=== PATIENT | male | born 1955 | race African-American/Black ===

== ENCOUNTER 2019-01-15 16:30 | Inpatient (IN) | payer MEDICAID ==
[~2019-01-15] VITALS: Ht 182.9 cm; Wt 99.8 kg
[~2019-01-15 16:30] MED LIST: ALBUTEROL INH; LISI-604 PO
[2019-01-15] MEDS ORDERED: SODIUM CHLORIDE 0.9% 1,000 ML IV ONE ×3 (17:58→23:56)
[2019-01-15] MEDS ORDERED: ONDANSETRON HCL 4MG/2ML INJ IV STA (17:58)
[2019-01-15 18:10] LABS: CLARITY URINE CLEAR (CLEAR); COLOR URINE YELLOW (YELLOW); KETONES URINE NEGATIVE (NEGATIVE); LEUKOCYTE ESTERASE URINE NEGATIVE (NEGATIVE); NITRITE URINE NEGATIVE (NEGATIVE); OCCULT BLOOD URINE NEGATIVE (NEGATIVE); PROTEIN URINE NEGATIVE (NEGATIVE); SPECIFIC GRAVITY URINE 1.032 (1.005-1.030); UROBILINOGEN URINE 0.2 E.U./dL (0.2-1.0)
[2019-01-15 18:25] LABS: BASOPHILS % 0.5 % (0.0-2.0); EOSINOPHILS % 0.3 % (0.0-5.0); HEMATOCRIT. 50.1 % (42.0-52.0); HEMOGLOBIN. 16.5 g/dL (14.0-18.0); LYMPHOCYTES % 13.1 % (20.0-50.0); MEAN CORPUSCULAR HEMOGLOBIN 32.8 pg (28.0-32.0); MEAN CORPUSCULAR VOLUME 99.6 fL (80.0-94.0); MEAN PLATELET VOLUME 12.1 fl (7.4-10.4); MONOCYTES % 9.3 % (2.0-8.0); NEUTROPHILS % 76.8 % (40.0-76.0); PLATELET 108 x1000/uL (130-400); RED BLOOD CELL COUNT 5.03 mill/uL (4.7-6.1); RED CELL DISTRIBUTION WIDTH 13.3 % (11.6-14.6)
[2019-01-15 21:40] LABS: CHLORIDE 83 mEq/L (98-107)
[2019-01-15] MEDS ORDERED: SODIUM BICARBONATE 8.4% 1 MEQ/ML 50ML SYR IV ONE (22:30)
[2019-01-15] MEDS ORDERED: CALCIUM CHLORIDE 1GM/10ML SYR IV ONE (22:30)
[2019-01-15] MEDS ORDERED: INSULIN REGULAR (HUMULIN R) 300UNITS/3ML IV ONE (22:30)
[2019-01-15] MEDS ORDERED: INSULIN REGULAR (DRIP) 100 UNITS in SODIUM CHLORIDE 0.9% 99 ML IV NR (23:55)
[2019-01-16] MEDS ORDERED: INSULIN REGULAR (DRIP) 100 UNITS in SODIUM CHLORIDE 0.9% 100 ML IV NR (00:30)
[2019-01-16 00:52] LABS: CHLORIDE 99 mEq/L (98-107)
[2019-01-16 04:30] VITALS: BP 137/89
[2019-01-16] MEDS ORDERED: NON FORMULARY PATIENT HOME MED XX SCH (05:00)
[2019-01-16] MEDS ORDERED: IPRATROPIUM/ALBUTEROL 0.5-3(2.5)MG/3ML NEB HHN PRN (05:00)
[2019-01-16] MEDS ORDERED: DEXTROSE 50% WATER 50ML SYRINGE IV PRN (05:00)
[2019-01-16] MEDS ORDERED: HYDROCODONE/ACETAMINOPHEN 5/325MG TABLET PO PRN (05:00)
[2019-01-16] MEDS: SODIUM CHLORIDE 0.9% 1,000 ML IV SCH (05:44)
[2019-01-16 06:14] VITALS: BP 137/89
[2019-01-16] MEDS: BLOOD SUGAR DIAGNOSTIC STRIP TEST SCH ×4 (06:43→20:59)
[2019-01-16 08:00] VITALS: BP 130/82
[2019-01-16] MEDS: LISINOPRIL 20MG TABLET PO SCH (08:14)
[2019-01-16] MEDS: INSULIN LISPRO 100 UNITS/ML SUBCUT SCH ×6 (08:28→21:19)
[2019-01-16] MEDS ORDERED: INSULIN GLARGINE UD 100 UNITS/ML SYR SUBCUT SCH (10:00)
[2019-01-16] MEDS ORDERED: SORBITOL 70% SOLN 30ML PO NR (10:15)
[2019-01-16 10:40] LABS: BASOPHILS % 0.7 % (0.0-2.0); EOSINOPHILS % 0.5 % (0.0-5.0); HEMATOCRIT. 42.3 % (42.0-52.0); HEMOGLOBIN. 14.4 g/dL (14.0-18.0); LYMPHOCYTES % 17.4 % (20.0-50.0); MEAN CORPUSCULAR HEMOGLOBIN 32.5 pg (28.0-32.0); MEAN CORPUSCULAR VOLUME 95.5 fL (80.0-94.0); MONOCYTES % 6.7 % (2.0-8.0); NEUTROPHILS % 74.7 % (40.0-76.0); PLATELET 102 x1000/uL (130-400); RED BLOOD CELL COUNT 4.43 mill/uL (4.7-6.1); RED CELL DISTRIBUTION WIDTH 13.1 % (11.6-14.6)
[2019-01-16 10:52] LABS: CHLORIDE 102 mEq/L (98-107)
[2019-01-16] MEDS: DOCUSATE SODIUM 250MG CAPSULE PO SCH (10:56)
[2019-01-16 10:59] LABS: LDL CHOLESTEROL 109 mg/dL (5-100)
[2019-01-16 11:00] LABS: HDL CHOLESTEROL 43 mg/dL (40-59)
[2019-01-16 12:00] VITALS: BP 130/78
[2019-01-16] MEDS ORDERED: GLIPIZIDE XL 2.5MG TABLET PO NR (13:00)
[2019-01-16 16:00] VITALS: BP 151/87
[2019-01-16 16:34] LABS: *AMPHETAMINES SCREEN URINE NEGATIVE (NEGATIVE); *BARBITURATES SCREEN URINE NEGATIVE (NEGATIVE); *BENZODIAZEPINES SCREEN URINE NEGATIVE (NEGATIVE); *COCAINE SCREEN URINE NEGATIVE (NEGATIVE); CANNABINOID URINE SCREEN NEGATIVE (NEGATIVE); METHADONE URINE SCREEN NEGATIVE (NEGATIVE); OPIATES URINE SCREEN NEGATIVE (NEGATIVE); PHENCYCLIDINE URINE SCREEN NEGATIVE (NEGATIVE)
[2019-01-16] MEDS: METFORMIN HCL 500MG TABLET PO SCH (18:10)
[2019-01-16 20:00] VITALS: BP 175/93
[2019-01-16] MEDS: INSULIN GLARGINE UD 100 UNITS/ML SYR SUBCUT SCH (21:20)
[2019-01-17] VITALS: BP 136/87
[2019-01-17 04:00] VITALS: BP 147/96
[2019-01-17] MEDS: SODIUM CHLORIDE 0.9% 1,000 ML IV SCH (05:50)
[2019-01-17] MEDS: BLOOD SUGAR DIAGNOSTIC STRIP TEST SCH ×2 (06:20→12:20)
[2019-01-17 08:00] VITALS: BP 136/96
[2019-01-17 08:05] LABS: BASOPHILS % 0.4 % (0.0-2.0); EOSINOPHILS % 0.6 % (0.0-5.0); HEMATOCRIT. 43.6 % (42.0-52.0); HEMOGLOBIN. 14.5 g/dL (14.0-18.0); LYMPHOCYTES % 24.3 % (20.0-50.0); MEAN CORPUSCULAR HEMOGLOBIN 32.2 pg (28.0-32.0); MEAN CORPUSCULAR VOLUME 96.6 fL (80.0-94.0); MONOCYTES % 8.3 % (2.0-8.0); NEUTROPHILS % 66.4 % (40.0-76.0); PLATELET 93 x1000/uL (130-400); RED BLOOD CELL COUNT 4.51 mill/uL (4.7-6.1); RED CELL DISTRIBUTION WIDTH 13.3 % (11.6-14.6)
[2019-01-17 08:18] LABS: CHLORIDE 106 mEq/L (98-107)
[2019-01-17] MEDS ORDERED: TRIAMCINOLONE ACETONIDE 0.1 % OINT 15GM TOP SCH ×2 (09:00→10:00)
[2019-01-17] MEDS: DOCUSATE SODIUM 250MG CAPSULE PO SCH (10:29)
[2019-01-17] MEDS: METFORMIN HCL 500MG TABLET PO SCH (10:29)
[2019-01-17] MEDS: LISINOPRIL 20MG TABLET PO SCH (10:31)
[2019-01-17] MEDS: INSULIN GLARGINE UD 100 UNITS/ML SYR SUBCUT SCH (10:41)
[2019-01-17] MEDS: INSULIN LISPRO 100 UNITS/ML SUBCUT SCH ×4 (10:41→12:50)
[2019-01-17 13:04] VITALS: BP 130/96
[2019-01-18 09:09] LABS: % CD 3 POS. LYMPHOCYTES 77.5 % (57.5-86.2); % CD 4 POS. LYMPHOCYTES 46.5 % (30.8-58.5); % CD 8 POS. LYMPH 33.6 % (12.0-35.5); ABSOLUTE CD 3 1473 /uL (622-2402); ABSOLUTE CD 4 HELPER 884 /uL (359-1519); ABSOLUTE CD 8 SUPPRESSOR 638 /uL (109-897); ABSOLUTE EOSINOPHILS 0.1 x10E3/uL (0.0-0.4); ABSOLUTE LYMPHOCYTES 1.9 x10E3/uL (0.7-3.1); ABSOLUTE MONOCYTES 0.5 x10E3/uL (0.1-0.9); ABSOLUTE NEUTROPHILS 6.5 x10E3/uL (1.4-7.0); BASOPHILS 0 % (Not Estab.); CD4/CD8 RATIO 1.38 (0.92-3.72); HEMATOCRIT 45.2 % (37.5-51.0); HEMOGLOBIN 14.3 g/dL (13.0-17.7); IMMATURE GRANULOCYTES 0 % (Not Estab.); LYMPHOCYTES 21 % (Not Estab.); MEAN CORPUSCULAR HEMOGLOBIN 31.4 pg (26.6-33.0); MEAN CORPUSCULAR HGB CONC. 31.6 g/dL (31.5-35.7); MEAN CORPUSCULAR VOLUME 99 fL (79-97); MONOCYTES 6 % (Not Estab.); NEUTROPHILS 72 % (Not Estab.); PLATELETS 127 x10E3/uL (150-450); RBC 4.55 x10E6/uL (4.14-5.80); RED CELL DISTRIBUTION WIDTH 13.5 % (12.3-15.4)
[2019-01-21 13:10] LABS: HIV 1 ABS Positive (Negative); HIV 2 ABS Negative (Negative); HIV SCREEN 4G Reactive (Non Reactive); INTERPRETATION HIV-1 Positive (.)
== END 2019-01-17 15:08 | disposition home or self-care (01) | DRG 420 ==
LOC: ER 16:30 → 6WST 23:42 → EDBEDREQTM 01-16 01:22 → EDBEDREQDT 01-16 01:22 → EDBEDREQSVC 01-16 01:22 → ENRESERV 01-16 03:28
PROVIDERS: ADMIT Internal Medicine; ATTEND Internal Medicine
DX: E11.65 Type 2 diabetes mellitus with hyperglycemia (principal); N17.0 Acute kidney failure with tubular necrosis; K59.00 Constipation, unspecified; E87.8 Other disorders of electrolyte and fluid balance, not elsewhere classified; E87.1 Hypo-osmolality and hyponatremia; E87.5 Hyperkalemia; I10 Essential (primary) hypertension; E87.6 Hypokalemia
CPT/HCPCS: 36415; 74021; 80048; 80061; 80305; 81003; 82962; 83036; 86359; 86360; 86701; 86702; 87389; 93005; 93970; 99291; C1893; J1815; J2405; J3490; J7030; J7050

== ENCOUNTER 2019-01-19 13:30 | Emergency (ER) | payer MEDICAID ==
[~2019-01-19] VITALS: Ht 182.9 cm; Wt 97.5 kg
[2019-01-19 15:03] VITALS: BP 142/99
== END 2019-01-19 15:16 | disposition home or self-care (01) ==
LOC: ER 13:39
DX: E11.65 Type 2 diabetes mellitus with hyperglycemia (principal); I10 Essential (primary) hypertension; Z98.890 Other specified postprocedural states
CPT/HCPCS: 82962; 99281; 99282

== ENCOUNTER 2019-05-24 15:22 | Emergency (ER) | payer MEDICAID ==
[~2019-05-24] VITALS: Ht 180.3 cm; Wt 95.5 kg
[2019-05-24] MEDS ORDERED: [UNRECOGNIZED DRUG - OTHER] (15:38)
[2019-05-24] MEDS ORDERED: KETOROLAC 60MG/2ML VIAL IM ONE (16:45)
[2019-05-24 17:32] VITALS: BP 132/78
== END 2019-05-24 17:42 | disposition home or self-care (01) ==
LOC: ER 15:22
DX: M79.671 Pain in right foot (principal); Z91.81 History of falling
CPT/HCPCS: 73630; 96372; 99283; J1885

== ENCOUNTER 2019-06-25 17:02 | Emergency (ER) | payer MEDICAID ==
[~2019-06-25] VITALS: Ht 182.9 cm; Wt 90.0 kg
[~2019-06-25 17:02] MED LIST changes: +[UNRECOGNIZED DRUG - OTHER]
[2019-06-25 17:06] VITALS: BP 126/83
[2019-06-25] MEDS ORDERED: PREDNISONE 20MG TABLET PO ONE (17:30)
== END 2019-06-25 17:36 | disposition home or self-care (01) ==
LOC: ER 17:02
DX: G51.0 Bell's palsy (principal); I10 Essential (primary) hypertension
CPT/HCPCS: 99283; J7512

== ENCOUNTER 2019-09-09 09:39 | Emergency (ER) | payer MEDICAID ==
[~2019-09-09] VITALS: Ht 182.9 cm; Wt 98.0 kg
[2019-09-09] MEDS ORDERED: KETOROLAC 60MG/2ML VIAL IM ONE (10:15)
[2019-09-09 12:44] VITALS: BP 175/100
== END 2019-09-09 12:46 | disposition home or self-care (01) ==
LOC: ER 09:39
DX: M54.40 Lumbago with sciatica, unspecified side (principal); G89.29 Other chronic pain; M25.551 Pain in right hip; E11.9 Type 2 diabetes mellitus without complications; I10 Essential (primary) hypertension; Z79.899 Other long term (current) drug therapy
CPT/HCPCS: 73502; 93971; 96372; 99284; J1885

== ENCOUNTER 2021-01-25 16:38 | Emergency (ER) | payer MEDICAID ==
[~2021-01-25] VITALS: Ht 180.3 cm; Wt 92.0 kg
[~2021-01-25 16:38] MED LIST changes: -LISI-604 PO; +LISI20TA31 PO
[2021-01-25 16:59] VITALS: BP 161/100
[2021-01-25] MEDS ORDERED: TOPUD MT (17:12)
== END 2021-01-25 17:24 | disposition home or self-care (01) ==
LOC: ER 16:38
DX: L84 Corns and callosities (principal); I10 Essential (primary) hypertension; E11.9 Type 2 diabetes mellitus without complications; Z98.890 Other specified postprocedural states
CPT/HCPCS: 82962; 99281

== ENCOUNTER 2022-07-05 06:09 | Emergency (ER) | payer MEDICARE, MEDICAID ==
[~2022-07-05] VITALS: Ht 180.3 cm; Wt 96.0 kg
[~2022-07-05 06:09] MED LIST changes: +TOPUD MT
[2022-07-05] MEDS ORDERED: IBUPROFEN 400MG TABLET PO ONE (06:30)
[2022-07-05] MEDS ORDERED: TOPUD PO (07:42)
[2022-07-05 08:24] VITALS: BP 133/87
== END 2022-07-05 08:31 | disposition home or self-care (01) ==
LOC: ER 06:09
DX: S62.306A Unspecified fracture of fifth metacarpal bone, right hand, initial encounter for closed fracture (principal); I10 Essential (primary) hypertension; E11.9 Type 2 diabetes mellitus without complications; W22.09XA Striking against other stationary object, initial encounter; Y93.89 Activity, other specified; Y92.89 Other specified places as the place of occurrence of the external cause; Y99.8 Other external cause status
CPT/HCPCS: 29125; 73130; 99283

== ENCOUNTER 2022-10-17 08:13 | Emergency (ER) | payer MEDICARE, MEDICAID ==
[~2022-10-17] VITALS: Ht 177.8 cm; Wt 90.0 kg
[~2022-10-17 08:13] MED LIST changes: +TOPUD PO
[2022-10-17 08:58] LABS: HEMATOCRIT. 40.9 % (42.0-52.0); HEMOGLOBIN. 13.4 g/dL (14.0-18.0); MEAN CORPUSCULAR HEMOGLOBIN 31.6 pg (28.0-32.0); MEAN CORPUSCULAR HGB CONC 32.8 g/dL (31.0-37.0); MEAN CORPUSCULAR VOLUME 96.5 fL (80.0-94.0); MEAN PLATELET VOLUME 10.4 fl (7.4-10.4); PLATELET 119 x1000/uL (130-400); RED BLOOD CELL COUNT 4.24 mill/uL (4.7-6.1); RED CELL DISTRIBUTION WIDTH 14.4 % (11.6-14.6); WHITE BLOOD COUNT 4.4 x1000/uL (4.5-11.0)
[2022-10-17 09:06] LABS: CHLORIDE 114 mEq/L (98-107); INDEX HEMOLYSI 1 (1-3); INDEX ICTERIC 1 (1-4); INDEX LIPEMIC 1 (1-3); POTASSIUM 3.8 mEq/L (3.5-5.1); SODIUM 139 mEq/L (136-145)
[2022-10-17 09:16] LABS: ALANINE AMINOTRANSFERASE 22 IU/L (13-61); ALBUMIN 3.2 g/dL (3.4-5.0); ASPARTATE AMINOTRANSFERASE 16 IU/L (15-37); BILIRUBIN TOTAL 0.3 mg/dL (0.1-1.0); CALCIUM 7.7 mg/dL (8.5-10.1); CARBON DIOXIDE 24 mEq/L (21-32); DIFFERENTIAL COMMENT 1; GLUCOSE 90 mg/dL (70-105); NT PRO B-TYPE NATRIURETIC PEP 121 pg/mL (5-125); PROTEIN TOTAL 6.6 g/dL (6.0-8.3); UREA NITROGEN BLOOD 21 mg/dL (7-21)
[2022-10-17] MEDS ORDERED: PREDNISONE 20MG TABLET PO STA (09:36)
[2022-10-17] MEDS ORDERED: ALBUTEROL (0.083%) 2.5MG/3ML NEB HHN STA (09:36)
[2022-10-17 10:00] VITALS: PULSE 70; RESP 20; O2SAT 94
[2022-10-17] MEDS ORDERED: ALBU6.7H3 INH (10:07)
[2022-10-17] MEDS ORDERED: P50 MT (10:07)
[2022-10-17] MEDS ORDERED: BLOO-1812 MC (10:07)
[2022-10-17 10:14] LABS: PLATELET ESTIMATE DECREASED
[2022-10-17 10:31] VITALS: BP 175/84; PULSE 80; RESP 19; TEMP 98.2
[2022-10-17 10:48] LABS: CLARITY URINE CLEAR (CLEAR); COLOR URINE YELLOW (YELLOW); GLUCOSE URINE NEGATIVE (NEGATIVE); KETONES URINE NEGATIVE (NEGATIVE); LEUKOCYTE ESTERASE URINE NEGATIVE (NEGATIVE); NITRITE URINE NEGATIVE (NEGATIVE); OCCULT BLOOD URINE NEGATIVE (NEGATIVE); PH URINE 5.5 (4.5-8.0); PROTEIN URINE NEGATIVE (NEGATIVE); SPECIFIC GRAVITY URINE 1.025 (1.005-1.030)
[2022-10-18] MEDS ORDERED: FLAS1EAC2 TP ×3 (00:35→00:58)
[2022-10-18] MEDS ORDERED: FLAS1KIT2 MC ×3 (00:35→00:58)
== END 2022-10-17 10:41 | disposition home or self-care (01) ==
LOC: ER 08:13
DX: J44.9 Chronic obstructive pulmonary disease, unspecified (principal); E11.9 Type 2 diabetes mellitus without complications; Z98.890 Other specified postprocedural states
CPT/HCPCS: 99285; 71045; 80053; 81003; 83880; 85025; 36415; 94640; 93005; J7512

== ENCOUNTER 2022-10-17 23:30 | Emergency (ER) | payer MEDICARE, MEDICAID ==
[~2022-10-17] VITALS: Ht 177.8 cm; Wt 101.0 kg
[~2022-10-17 23:30] MED LIST changes: +ALBU6.7H3 INH; +BLOO-1812 MC; +P50 MT
[2022-10-17 23:41] VITALS: BP 202/108; PULSE 85; RESP 18; TEMP 98.4; O2SAT 99
[2022-10-18] MEDS ORDERED: FLAS1KIT2 MC ×3 (00:35→00:58)
[2022-10-18] MEDS ORDERED: FLAS1EAC2 TP ×3 (00:35→00:58)
== END 2022-10-18 00:59 | disposition home or self-care (01) ==
LOC: ER 23:30
DX: Z76.0 Encounter for issue of repeat prescription (principal)
CPT/HCPCS: 99281

== ENCOUNTER 2024-01-06 08:23 | Inpatient (IN) | payer MEDICAID ==
[~2024-01-06] VITALS: Ht 182.9 cm; Wt 93.0 kg
[~2024-01-06 08:23] MED LIST changes: +FLAS1EAC2 TP; +FLAS1KIT2 MC
[2024-01-06] MEDS: IPRATROPIUM BROMIDE (0.02%) 0.5MG/2.5ML NEB HHN STA (09:11)
[2024-01-06 09:12] VITALS: PULSE 82; RESP 16; O2SAT 98
[2024-01-06] MEDS: ALBUTEROL (0.083%) 2.5MG/3ML NEB HHN STA (09:12)
[2024-01-06 09:37] LABS: EOSINOPHILS % 7.4 % (0.0-5.0); HEMATOCRIT. 44.1 % (42.0-52.0); HEMOGLOBIN. 14.1 g/dL (14.0-18.0); LYMPHOCYTES % 26.5 % (20.0-50.0); MEAN CORPUSCULAR HEMOGLOBIN 32.1 pg (28.0-32.0); MEAN CORPUSCULAR HGB CONC 32.1 g/dL (31.0-37.0); MEAN PLATELET VOLUME 10.5 fl (7.4-10.4); MONOCYTES % 8.5 % (2.0-8.0); NEUTROPHILS % 56.6 % (40.0-76.0); PLATELET 127 x1000/uL (130-400); RED BLOOD CELL COUNT 4.41 mill/uL (4.7-6.1); RED CELL DISTRIBUTION WIDTH 14.9 % (11.6-14.6); WHITE BLOOD COUNT 4.1 x1000/uL (4.5-11.0)
[2024-01-06] MEDS: METHYLPREDNISOLONE SOD SUCC 125MG/2ML (ACT-O-VIAL) IV STA (09:38)
[2024-01-06] MEDS: MAGNESIUM 2 G PREMIX 50 ML IV STA (09:38)
[2024-01-06 09:54] LABS: CARBON DIOXIDE 29 mEq/L (21-32); CHLORIDE 109 mEq/L (98-107); POTASSIUM 3.9 mEq/L (3.5-5.1); SODIUM 142 mEq/L (136-145)
[2024-01-06 09:55] LABS: CALCIUM 8.9 mg/dL (8.7-10.4)
[2024-01-06 10:00] LABS: CREATININE 1.1 mg/dL (0.6-1.3); GLUCOSE 140 mg/dL (70-105); TROPONIN I HIGH SENSITIVITY 13 ng/L (3.0-53); UREA NITROGEN BLOOD 16 mg/dL (9-23)
[2024-01-06 10:02] LABS: ALANINE AMINOTRANSFERASE 17 IU/L (10-49); ASPARTATE AMINOTRANSFERASE 20 IU/L (<34); BILIRUBIN DIRECT 0.2 mg/dL (<=3.0); BILIRUBIN TOTAL 0.6 mg/dL (0.1-1.0); PROTEIN TOTAL 6.8 g/dL (6.0-8.3)
[2024-01-06 10:13] LABS: CLARITY URINE CLEAR (CLEAR); COLOR URINE YELLOW (YELLOW); GLUCOSE URINE NEGATIVE (NEGATIVE); KETONES URINE NEGATIVE (NEGATIVE); LEUKOCYTE ESTERASE URINE NEGATIVE (NEGATIVE); NITRITE URINE NEGATIVE (NEGATIVE); OCCULT BLOOD URINE NEGATIVE (NEGATIVE); PH URINE 5.5 (4.5-8.0); PROTEIN URINE NEGATIVE (NEGATIVE); SPECIFIC GRAVITY URINE 1.021 (1.005-1.030); UROBILINOGEN URINE 0.2 E.U./dL (0.2-1.0)
[2024-01-06 10:55] LABS: LACTATE DEHYDROGENASE 196 IU/L (120-246)
[2024-01-06] MEDS: ENALAPRIL 2.5MG/2ML VIAL 2ML IV ONE (11:29)
[2024-01-06 12:25] LABS: TROPONIN I HIGH SENSITIVITY 10 ng/L (3.0-53)
[2024-01-06] MEDS ORDERED: DOCUSATE SODIUM 100MG CAPSULE PO PRN (12:45)
[2024-01-06] MEDS ORDERED: ACETAMINOPHEN 325MG TABLET PO PRN ×2 (12:45)
[2024-01-06] MEDS ORDERED: ONDANSETRON HCL 4MG/2ML INJ IV PRN (12:45)
[2024-01-06] MEDS ORDERED: HYDROCORTISONE SOD SUCCINATE 100 MG/2 ML VIAL IV SCH (14:00)
[2024-01-06] MEDS: METHYLPREDNISOLONE SOD SUCC 40MG/ML (ACT-O-VIAL) IV SCH (14:35)
[2024-01-06] MEDS: IPRATROPIUM/ALBUTEROL 0.5-3(2.5)MG/3ML NEB HHN NR (14:35)
[2024-01-06 16:35] VITALS: PULSE 87; RESP 20; O2SAT 97
[2024-01-06] MEDS: IPRATROPIUM/ALBUTEROL 0.5-3(2.5)MG/3ML NEB HHN PRN (16:35)
[2024-01-06 20:00] VITALS: BP 236/133; PULSE 99; RESP 22; TEMP 37.11408; O2SAT 96
[2024-01-06] MEDS: HEPARIN 5000 UNITS/ML VIAL SUBCUT SCH (20:37)
[2024-01-06] MEDS: CLONIDINE 0.1MG TABLET PO PRN (20:37)
[2024-01-06] MEDS: LABETALOL 5MG/ML 4ML INJ IV PRN (20:48)
[2024-01-06 21:00] VITALS: BP 211/126; PULSE 83; PULSE 99; RESP 20; RESP 28; TEMP 37.11408; O2SAT 99
[2024-01-06] MEDS ORDERED: DEXTROSE 50% WATER 50ML SYRINGE IV PRN (23:00)
[2024-01-06] MEDS: INSULIN LISPRO 100 UNITS/ML SUBCUT SCH (23:04)
[2024-01-06] MEDS: BLOOD SUGAR DIAGNOSTIC STRIP TEST SCH (23:04)
[2024-01-06] MEDS: INSULIN GLARGINE 100 UNITS/ML SUBCUT SCH (23:05)
[2024-01-06] MEDS: ZOLPIDEM TARTRATE 5MG TABLET PO PRN (23:13)
[2024-01-07] VITALS (11 sets, daily range): BP systolic 150–185; BP diastolic 90–103; PULSE 79–96; RESP 16–23; TEMP 36.16956–36.72516; O2SAT 95–100
[2024-01-07] MEDS ORDERED: ELVI1TAB3 MT (03:34)
[2024-01-07 07:41] LABS: CARBON DIOXIDE 25 mEq/L (21-32); CHLORIDE 104 mEq/L (98-107); POTASSIUM 4.5 mEq/L (3.5-5.1); SODIUM 137 mEq/L (136-145)
[2024-01-07 07:42] LABS: CALCIUM 9.5 mg/dL (8.7-10.4)
[2024-01-07 07:46] LABS: CREATININE 1.1 mg/dL (0.6-1.3); GLUCOSE 264 mg/dL (70-105)
[2024-01-07 07:47] LABS: UREA NITROGEN BLOOD 22 mg/dL (9-23)
[2024-01-07 08:11] LABS: HEPATITIS B SURFACE ANTIGEN NEGATIVE (Negative)
[2024-01-07 08:32] LABS: HEPATITIS C AB REACTIVE (Pos) (Negative)
[2024-01-07 08:33] LABS: HEMATOCRIT. 43.4 % (42.0-52.0); HEMOGLOBIN. 14.1 g/dL (14.0-18.0); MEAN CORPUSCULAR HEMOGLOBIN 32.1 pg (28.0-32.0); MEAN CORPUSCULAR HGB CONC 32.6 g/dL (31.0-37.0); MEAN CORPUSCULAR VOLUME 98.6 fL (80.0-94.0); MEAN PLATELET VOLUME 11.3 fl (7.4-10.4); PLATELET 137 x1000/uL (130-400); RED CELL DISTRIBUTION WIDTH 14.1 % (11.6-14.6); WHITE BLOOD COUNT 18.1 x1000/uL (4.5-11.0)
[2024-01-07 08:42] LABS: DIFFERENTIAL COMMENT 1
[2024-01-07] MEDS ORDERED: PATIENT'S OWN MEDICATION PO SCH (09:00)
[2024-01-07] MEDS: AMLODIPINE 5MG TABLET PO SCH (09:27)
[2024-01-07] MEDS ORDERED: AMLO5TAB88 PO (10:56)
[2024-01-07] MEDS ORDERED: DULA0.75 SUBCUT (10:56)
[2024-01-07] MEDS ORDERED: DOXA2TAB2 PO (10:56)
[2024-01-07] MEDS ORDERED: LISI40TA13 PO (10:56)
[2024-01-07] MEDS ORDERED: [UNRECOGNIZED DRUG - CODE] PO (10:56)
[2024-01-07] MEDS ORDERED: HYDROCODONE/ACETAMINOPHEN 5/325MG TABLET PO PRN (13:15)
[2024-01-07] MEDS ORDERED: GUAIFENESIN/DM 600MG/30MG ER TAB 12HR PO PRN (13:15)
[2024-01-07] MEDS ORDERED: NALOXONE HCL 0.4MG/ML VIAL IV PRN (13:30)
[2024-01-07 19:26] LABS: PLATELET ESTIMATE NORMAL
[2024-01-07] MEDS: IPRATROPIUM/ALBUTEROL 0.5-3(2.5)MG/3ML NEB HHN SCH (20:13)
[2024-01-07] MEDS ORDERED: INSULIN LISPRO 100 UNITS/ML SUBCUT SCH (23:00)
[2024-01-08 00:04] VITALS: BP 170/101; PULSE 74; RESP 12; TEMP 36.114; O2SAT 98
[2024-01-08 01:56] VITALS: PULSE 82; RESP 17; O2SAT 100
[2024-01-08 04:04] VITALS: BP 172/97; PULSE 68; RESP 20; TEMP 36.16956; O2SAT 97
[2024-01-08 07:10] LABS: CHLORIDE 108 mEq/L (98-107); POTASSIUM 4.3 mEq/L (3.5-5.1); SODIUM 139 mEq/L (136-145)
[2024-01-08 07:11] LABS: CALCIUM 9.6 mg/dL (8.7-10.4); CARBON DIOXIDE 25 mEq/L (21-32)
[2024-01-08 07:16] LABS: CREATININE 1.1 mg/dL (0.6-1.3); GLUCOSE 229 mg/dL (70-105); UREA NITROGEN BLOOD 28 mg/dL (9-23)
[2024-01-08 08:00] VITALS: BP 168/90; PULSE 90; RESP 14; TEMP 36.6696; TEMP 36.66960; O2SAT 94
[2024-01-08 09:02] VITALS: PULSE 87; RESP 18; O2SAT 98
[2024-01-08 09:02] LABS: HEMATOCRIT. 41.2 % (42.0-52.0); HEMOGLOBIN. 13.8 g/dL (14.0-18.0); MEAN CORPUSCULAR HGB CONC 33.4 g/dL (31.0-37.0); MEAN CORPUSCULAR VOLUME 98.8 fL (80.0-94.0); MEAN PLATELET VOLUME 11.5 fl (7.4-10.4); PLATELET 122 x1000/uL (130-400); RED BLOOD CELL COUNT 4.17 mill/uL (4.7-6.1); RED CELL DISTRIBUTION WIDTH 14.6 % (11.6-14.6); WHITE BLOOD COUNT 19.6 x1000/uL (4.5-11.0)
[2024-01-08 09:07] LABS: DIFFERENTIAL COMMENT 1
[2024-01-08] MEDS ORDERED: P20 MT (10:49)
[2024-01-08] MEDS ORDERED: ALBU18HF2 IH (10:50)
[2024-01-08] MEDS ORDERED: FLUT1DIS3 INH (10:50)
[2024-01-08 11:12] VITALS: BP 168/168; PULSE 90; TEMP 98; O2SAT 90
[2024-01-08] MEDS: NIFEDIPINE XL 60MG TAB PO SCH (11:35)
[2024-01-08 21:36] LABS: PLATELET ESTIMATE DECREASED
== END 2024-01-08 11:46 | disposition home or self-care (01) | DRG 189 ==
LOC: ER 08:23 → 5WST 10:30 → EDBEDREQ 10:31 → EDBEDREQTM 10:31 → 5WST 19:29 → 3WST 01-07 02:15
PROVIDERS: ADMIT Internal Medicine; ATTEND Internal Medicine
DX: J96.00 Acute respiratory failure, unspecified whether with hypoxia or hypercapnia (principal); J44.1 Chronic obstructive pulmonary disease with (acute) exacerbation; J45.901 Unspecified asthma with (acute) exacerbation; E11.65 Type 2 diabetes mellitus with hyperglycemia; I10 Essential (primary) hypertension; Z20.822 Contact with and (suspected) exposure to COVID-19; D72.823 Leukemoid reaction; F17.210 Nicotine dependence, cigarettes, uncomplicated; R91.1 Solitary pulmonary nodule; R07.89 Other chest pain; Z79.51 Long term (current) use of inhaled steroids; Z82.49 Family history of ischemic heart disease and other diseases of the circulatory system; Z79.899 Other long term (current) drug therapy
CPT/HCPCS: 36415; 71045; 80048; 80076; 81003; 82962; 83615; 84484; 85025; 86705; 87340; 87426; 93005; 94640; 99291; A4565; J1644; J1720; J1815; J2919; J2920; J3475; J3490